=== PATIENT | female | born 1990 | race Caucasian/White ===

== ENCOUNTER 2025-03-13 08:07 | Inpatient (IN) | payer MEDICAID ==
[2025-03-13 13:34] LABS: ASPARTATE AMINOTRANSFERASE 18 U/L (15-37); CALCIUM, TOTAL 8.7 mg/dL (8.8-10.5); CREATININE 0.66 mg/dL (0.60-1.30); GLOMERULAR FILTR. RATE CALC > 60 mL/min (>60); GLUCOSE,RANDOM 95 mg/dL (70-110); TOTAL PROTEIN, SERUM 7.2 g/dL (6.4-8.2); UREA NITROGEN, BLOOD 11 mg/dL (7-18)
[2025-03-13 13:40] LABS: SODIUM SERUM 140 mmol/L (136-145)
[2025-03-13 18:56] VITALS: BP 139/80; PULSE 62; RESP 17; TEMP 98.1; O2SAT 98
[2025-03-13 20:09] VITALS: BP 139/76; PULSE 52; RESP 17; TEMP 98.9; O2SAT 100
[2025-03-13 20:20] VITALS: PULSE 67
[2025-03-13] MEDS: ZOLPIDEM TARTRATE 10 MG TABLET PO PRN (21:18)
[2025-03-14] MEDS ORDERED: MAG HYDROX/ALUMINUM HYD/SIMETH ES 30 ML SUSPENSION UDCUP PO PRN (07:45)
[2025-03-14] MEDS ORDERED: GuaiFENesin/D-METHORPHAN [SUGAR-FREE] 200-20MG/10 ML SYRUP UDCUP PO PRN (07:45)
[2025-03-14] MEDS ORDERED: ONDANSETRON 4 MG TABLET PO PRN (07:45)
[2025-03-14] MEDS ORDERED: ACETAMINOPHEN 325 MG TABLET PO PRN (07:45)
[2025-03-14] MEDS ORDERED: PETROLATUM,WHITE 28 GM JELLY TP PRN (07:45)
[2025-03-14] MEDS ORDERED: ALBUTEROL SULFATE HFA 90 MCG/PUFF 8 GM INHALER IH PRN (07:45)
[2025-03-14] MEDS ORDERED: NICOTINE 14 MG/24 HOUR PATCH TD PRN (07:45)
[2025-03-14] MEDS ORDERED: LOPERAMIDE HCL 2 MG CAPSULE PO PRN (07:45)
[2025-03-14] MEDS ORDERED: MAGNESIUM HYDROXIDE SUSPENSION 30 ML UDCUP PO PRN (07:45)
[2025-03-14] MEDS ORDERED: DOCUSATE SODIUM 100 MG CAPSULE PO PRN (07:45)
[2025-03-14 09:29] VITALS: BP 111/84; PULSE 60; RESP 16; TEMP 98.6; O2SAT 98
[2025-03-14 09:58] LABS: PLATELET COUNT (AUTO) 279 K/uL (150-450); RED BLOOD CELL COUNT(AUTO) 4.81 MIL/uL (4.00-5.20); RED CELL DISTRIBUTION WIDTH 13.3 % (11.5-14.5); WHITE BLOOD COUNT (AUTO) 10.7 K/uL (4.5-11.0)
[2025-03-14 10:13] LABS: CHOL/HDL RATIO 3.6 (3.9-5.7); LDL CHOL (CALC.) 113 mg/dL (0-130)
[2025-03-14 10:37] LABS: ALCOHOL, BLOOD (SERUM) < 3 mg/dL (0-10)
[2025-03-14 10:43] LABS: ASPARTATE AMINOTRANSFERASE 19 U/L (15-37); CALCIUM, TOTAL 8.9 mg/dL (8.8-10.5); CREATININE 0.55 mg/dL (0.60-1.30); GLOMERULAR FILTR. RATE CALC > 60 mL/min (>60); GLUCOSE,RANDOM 77 mg/dL (70-110); SODIUM SERUM 139 mmol/L (136-145); TOTAL PROTEIN, SERUM 7.2 g/dL (6.4-8.2); UREA NITROGEN, BLOOD 9 mg/dL (7-18)
== END 2025-03-14 18:10 | disposition home or self-care (01) | DRG 751 ==
LOC: B2S 16:46
PROVIDERS: ADMIT Psychiatry & Neurology Psychiatry; ATTEND Psychiatry & Neurology Psychiatry
DX: F33.9 Major depressive disorder, recurrent, unspecified (principal); R45.851 Suicidal ideations; F10.90 Alcohol use, unspecified, uncomplicated; F41.9 Anxiety disorder, unspecified; F64.0 Transsexualism; G47.00 Insomnia, unspecified; F12.90 Cannabis use, unspecified, uncomplicated; Y90.9 Presence of alcohol in blood, level not specified; Z87.891 Personal history of nicotine dependence; Z88.6 Allergy status to analgesic agent
CPT/HCPCS: 80053; 80061; 83036; 84439; 84443; 84703; 85025; G0480

== ENCOUNTER 2025-03-13 11:29 | Emergency (ER) | payer MEDICAID ==
[~2025-03-13] VITALS: Ht 154.9 cm; Wt 61.0 kg
[2025-03-13 11:49] VITALS: TEMP 98.1
[2025-03-13] MEDS: SODIUM CHLORIDE 0.9% 1,000 ML IV ONE (12:08)
[2025-03-13 12:19] LABS: CALCIUM, TOTAL 8.4 mg/dL (8.8-10.5); CREATININE 0.66 mg/dL (0.60-1.30); GLOMERULAR FILTR. RATE CALC > 60 mL/min (>60); GLUCOSE,RANDOM 99 mg/dL (70-110); SODIUM SERUM 141 mmol/L (136-145); UREA NITROGEN, BLOOD 9 mg/dL (7-18)
[2025-03-13 12:20] LABS: APPEARANCE,URINE CLEAR (CLEAR); GLUCOSE, URINE (UA) NEGATIVE (NEGATIVE); LEUKOCYTE ESTERASE ,URINE NEGATIVE (NEGATIVE); NITRATE,URINE NEGATIVE (NEGATIVE); OCCULT BLOOD,URINE NEGATIVE (NEGATIVE); SPECIFIC GRAVITIY, URINE 1.008 (1.003-1.030)
[2025-03-13 12:20] LABS: PLATELET COUNT (AUTO) 284 K/uL (150-450); RED BLOOD CELL COUNT(AUTO) 4.87 MIL/uL (4.00-5.20); RED CELL DISTRIBUTION WIDTH 13.1 % (11.5-14.5); WHITE BLOOD COUNT (AUTO) 11.5 K/uL (4.5-11.0)
[2025-03-13 12:25] LABS: ASPARTATE AMINOTRANSFERASE 16 U/L (15-37); TOTAL PROTEIN, SERUM 7.2 g/dL (6.4-8.2)
[2025-03-13 12:26] LABS: AMPHET/METH SCREEN,URINE NEGATIVE (NEGATIVE); BARBITURATE SCREEN, URINE NEGATIVE (NEGATIVE); CANNABINOID SCREEN,URINE POSITIVE (NEGATIVE); COCAINE SCREEN,URINE NEGATIVE (NEGATIVE); METHADONE SCREEN, URINE NEGATIVE (NEGATIVE)
[2025-03-13 12:29] LABS: ALCOHOL, URINE DRUG SCREEN NEGATIVE (NEGATIVE)
[2025-03-13 12:34] LABS: COVID AG,FIA SOURCE NASAL SWAB
[2025-03-13 12:44] LABS: PH,URINE DRUG SCREEN 7.5 (5.0-8.0)
[2025-03-13 12:53] LABS: ALCOHOL, BLOOD (SERUM) < 3 mg/dL (0-10)
[2025-03-13 13:03] LABS: INFLUENZA TYPE A NEGATIVE FOR TYPE A (NEGATIVE); INFLUENZA TYPE B NEGATIVE FOR TYPE B (NEGATIVE)
[2025-03-13 13:03] LABS: SARS-COV2 (COVID) ANTIGEN,FIA Negative (Negative)
[2025-03-13 14:01] VITALS: BP 143/91; PULSE 56; RESP 12; O2SAT 100
== END 2025-03-13 16:56 | disposition home or self-care (01) ==
LOC: EMS 11:38
DX: F25.1 Schizoaffective disorder, depressive type (principal); F41.9 Anxiety disorder, unspecified; R11.2 Nausea with vomiting, unspecified; F84.0 Autistic disorder; F64.0 Transsexualism; Z88.6 Allergy status to analgesic agent; Z79.899 Other long term (current) drug therapy; Z20.822 Contact with and (suspected) exposure to COVID-19
CPT/HCPCS: 99285; 96360; 87426; 80048; 81003; 82248; 84702; 85025; 87804; 36415; 80307; G0480; J7030